=== PATIENT | female | born 1960 | race Two or more races ===

== ENCOUNTER 2018-04-01 17:49 | Emergency (ER) | payer SELFPAY ==
[2018-04-01 18:05] VITALS: BP 117/57
--- NOTE | 2018-04-01 18:11 | ER Document Report ---
HPI - HPI Pain Level: Denies Notes: Patient is a 51-year-old female with no significant past medical history who presents to the ED complaining of urinary burning, urgency, frequency 2-3 days. She is eating and drinking without difficulties. She is having normal bowel movements. Patient denies any drug allergies. She denies any smoking or IV drug use. Patient also presents to the ED trying to get a medical clearance for the plasma donation center. Patient states that when she was there they saw her hands and I looked arthritic and depending on the type of arthritis will determine if she can donate or not. Patient does not have a primary care provider. Denies any headache, fever, head injurURI, sore throat, chest pain, palpitations, syncope, cough, shortness of breath, wheeze, dyspnea, abdominal pain, nausea/vomiting/diarrhea, urinary retention, loss of control of bowel or bladder, numbness/tingling, muscle paralysis/weakness, or rash. - ROS Systems Reviewed and Negative: Yes All other systems reviewed and negative Past Medical History - Social History Smoking Status: Never Smoker Family History: Reviewed & Not Pertinent Vertical Provider Document - CONSTITUTIONAL Agree With Documented VS: Yes Notes: PHYSICAL EXAMINATION: GENERAL: Well-appearing, well-nourished and in no acute distress. LUNGS: Breath sounds clear to auscultation bilaterally and equal. No wheezes rales or rhonchi. HEART: Regular rate and rhythm without murmurs, rubs, gallops. ABDOMEN: Soft, nontender, nondistended abdomen. No guarding, no rebound. No masses appreciated. Normal bowel sounds present. No CVA tenderness bilaterally. Musculoskeletal: Hands b/l: FROM to passive/active. Strength 5+/5. + heberden' s nodes to the DIP joints of each digit. No ulnar deviation. N/V intact distal. Extremities: No cyanosis, clubbing, or edema b/l. Peripheral pulses 2+. Capillary refill less than 3 seconds. NEUROLOGICAL: Normal speech, normal gait. Normal sensory, motor exams PSYCH: Normal mood, normal affect. SKIN: Warm, Dry, normal turgor, no rashes or lesions noted. Course - Re-evaluation Re-evalutation: 04/01/18 18:39 Patient is an afebrile, well-hydrated 51-year-old female who presents to the ED with dysuria unspecified and arthritic changes to her hands which I suspect is osteoarthritis. Vitals are acceptable. PE is otherwise unremarkable for any neurovascular compress, obvious tendon/ligament rupture, obvious fracture/ dislocation. Patient has no tachycardia, tachypnea, or hypoxia. See urinalysis results. Urine culture is pending. Reviewed with patient that I will not be medically clearing her based on this 1 visit today and that she needs to see a specialist for further evaluation and management if she wants to donate plasma. Patient's abdomen is soft and nontender. Low suspicion for any sepsis, meningitis, pyelonephritis, acute abdomen, urosepsis. Conservative measures for symptoms. Establish with the PCM next week. Consider consult with orthopedic/rheumatology. Return to the ED with any worsening/concerning symptoms otherwise as reviewed discharge. Patient is in agreement. - Vital Signs Vital signs: Temp Pulse Resp BP Pulse Ox 98.7 F 71 17 117/57 L 98 04/01/18 18:04 04/01/18 18:04 04/01/18 18:04 04/01/18 18:04 04/01/18 18:04 Discharge - Discharge Clinical Impression: Arthritis of hand, Dysuria Condition: Stable Disposition: HOME, SELF-CARE Instructions: Family Physicians / Practices Additional Instructions: Push fluids (i.e. water, cranberry juice) Proper hygenic technique Keep the skin clean Tylenol/ibuprofen as needed Take medications as directed Establish with PCM in 1 week for a recheck Consider consult with orthopedic/rheumatology for ongoing/worsening symptoms and for further evaluation of your arthritis Return to the ED with any worsening symptoms and/or development of fever, headache, chest pain, palpitations, syncope, shortness of breath, trouble breathing, abdominal pain, n/v/d, blood in stool/urine, loss of control of bowel /bladder, urinary retention, or other worsening symptoms that are concerning to you. Referrals: [facility] [Provider Group] - Follow up as needed FRANSISCO SCOTT MD [ACTIVE STAFF] - Follow up as needed
[2018-04-01 18:30] LABS: APPEARANCE,URINE SLIGHTLY-CLOUDY; BILIRUBIN,URINE NEGATIVE (NEGATIVE); COLOR,URINE YELLOW; GLUCOSE, URINE NEGATIVE (NEGATIVE); KETONES,URINE NEGATIVE (NEGATIVE); LEUKOCYTE ESTERASE,URINE NEGATIVE (NEGATIVE); NITRITE,URINE NEGATIVE (NEGATIVE); PROTEIN,URINE NEGATIVE (NEGATIVE); URINE SPECIFIC GRAVITY 1.004; UROBILINOGEN,URINE NEGATIVE mg/dL (<2.0)
== END 2018-04-01 18:47 | disposition home or self-care (01) ==
LOC: EDBD → ER 17:49
DX: R30.0 Dysuria (principal); M19.042 Primary osteoarthritis, left hand; M19.041 Primary osteoarthritis, right hand
CPT/HCPCS: 81001; 87086; 99283

== ENCOUNTER 2019-12-17 11:43 | Emergency (ER) | payer SELFPAY ==
[2019-12-17] MEDS ORDERED: ONDANSETRON HCL INJ/PF 4 MG/2 ML SDV IV ONE (12:09)
--- NOTE | 2019-12-17 12:10 | ER Document Report ---
ED Medical Screen (RME) - General Chief Complaint: Abdominal Pain Stated Complaint: ABDOMINAL PAIN Time Seen by Provider: 12/17/19 12:06 Mode of Arrival: Ambulatory Information source: Patient Notes: Patient presents with abdominal tenderness that started 2 days ago. Patient does report nausea vomiting diarrhea. Patient denies any fever but does report chills. No urinary symptoms. Patient does report a previous history of stomach ulcers. I have greeted and performed a rapid initial assessment of this patient. A comprehensive ED assessment and evaluation of the patient, analysis of test results and completion of the medical decision making process will be conducted by additional ED providers. - Related Data Allergies/Adverse Reactions: No Known Allergies Allergy (Unverified 04/01/18 17:52) Past Medical History - Social History Chew tobacco use (# tins/day): No Frequency of alcohol use: None Drug Abuse: None Renal/ Medical History: Denies: Hx Peritoneal Dialysis Physical Exam - Vital signs Vitals: Temp Pulse Resp BP Pulse Ox 98.1 F 63 16 131/57 H 98 12/17/19 11:51 12/17/19 11:51 12/17/19 11:51 12/17/19 11:51 12/17/19 11:51 - General General appearance: Appears well, Alert - Abdominal Tenderness: Tender - epigastric Course - Vital Signs Vital signs: Temp Pulse Resp BP Pulse Ox 98.1 F 63 16 131/57 H 98 12/17/19 11:51 12/17/19 11:51 12/17/19 11:51 12/17/19 11:51 12/17/19 11:51
--- NOTE | 2019-12-17 12:42 | ER Document Report ---
ED GI/ - General Chief Complaint: Abdominal Pain Stated Complaint: ABDOMINAL PAIN Time Seen by Provider: 12/17/19 12:06 Mode of Arrival: Ambulatory Notes: CHIEF COMPLAINT: Chills, abdominal pain for 2 days, nausea HPI: 59-year-old female presenting to the emergency department complaining of abdominal pain over the last 2 days with nausea no vomiting. She has had chills no definite fever. She has had 2-3 episodes of diarrhea. Patient states her discomfort begins in the epigastric region radiating into the left lower quadrant region. Denies prior significant medical or surgical history other than . No history of diverticular disease per the patient. Denies dysuria ROS: See HPI - all other systems were reviewed and are otherwise negative Constitutional: no fever Eyes: no drainage, no blurred vision ENT: no runny nose, no sore throat Cardiovascular: no chest pain Resp: no SOB, no cough GI: no vomiting, + diarrhea, + abdominal pain, + nausea : no dysuria Integumentary: no rash Allergy: no hives Musculoskeletal: no extremity pain or swelling Neurological: no numbness/tingling, no weakness MEDICATIONS: I agree with the patient medications as charted by the RN. ALLERGIES: I agree with the allergies as charted by the RN. PAST MEDICAL HISTORY/PAST SURGICAL HISTORY: Reviewed and agree as charted by RN. SOCIAL HISTORY: Reviewed and agree as charted by RN. FAMILY HISTORY: No significant familial comorbid conditions directly related to patient complaint EXAM: Reviewed vital signs as charted by RN. CONSTITUTIONAL: Alert and oriented and responds appropriately to questions. Well-appearing; well-nourished, mild distress secondary to pain HEAD: Normocephalic; atraumatic EYES: Conjunctivae clear, sclerae non-icteric ENT: normal nose; no rhinorrhea; moist mucous membranes; pharynx without lesions noted, no uvula edema or deviation, no tonsillar hypertrophy, phonation normal NECK: Supple without meningismus; non-tender; no cervical lymphadenopathy, no masses CARD: RRR; no murmurs, no clicks, no rubs, no gallops; symmetric distal pulses RESP: Normal chest excursion without splinting or tachypnea; breath sounds clear and equal bilaterally; no wheezes, no rhonchi, no rales, pulse oximetry 98% on room air not hypoxic ABD/GI: Obese, normal bowel sounds; non-distended; soft, moderate tenderness in both the epigastric and left lower quadrant region on palpation. There is guarding in the left lower quadrant on exam, no rebound, no palpable organomegaly or masses. BACK: The back appears normal and is non-tender to palpation, there is no CVA tenderness EXT: Normal ROM in all joints; non-tender to palpation; no cyanosis, no effusions, no edema SKIN: Normal color for age and race; warm; dry; good turgor; no acute lesions noted NEURO: Moves all extremities equally; Motor and sensory function intact PSYCH: The patient's mood and manner are appropriate. Grooming and personal hygiene are appropriate. MDM: 59-year-old female presenting with 2-3 episodes of diarrhea, epigastric and left lower quadrant abdominal pain over the last 2 days with chills. She is moderately tender in the left lower quadrant on palpation. Screening labs ordered in triage, will add CT imaging to evaluate for diverticular disease, colitis, abscess. Discussed with attending Dr. Cotton and Dr. Ardon, Surgicalist. Prefers oral contrast in addition to IV contrast to better define the bowel in case there is abscess or surgical issue - Related Data Allergies/Adverse Reactions: acetaminophen [From NyQuil] Allergy (Verified 12/17/19 12:53) dextromethorphan [From NyQuil] Allergy (Verified 12/17/19 12:53) doxylamine [From NyQuil] Allergy (Verified 12/17/19 12:53) Penicillins Allergy (Verified 12/17/19 12:53) pseudoephedrine [From NyQuil] Allergy (Verified 12/17/19 12:53) Past Medical History - General Information source: Patient - Social History Smoking Status: Never Smoker Chew tobacco use (# tins/day): No Frequency of alcohol use: None Drug Abuse: None Family History: Reviewed & Not Pertinent Patient has suicidal ideation: No Patient has homicidal ideation: No Renal/ Medical History: Denies: Hx Peritoneal Dialysis Past Surgical History: Reports: Hx Section Physical Exam - Vital signs Vitals: Temp Pulse Resp BP Pulse Ox 98.1 F 63 16 131/57 H 98 12/17/19 11:51 12/17/19 11:51 12/17/19 11:51 12/17/19 11:51 12/17/19 11:51 Course - Re-evaluation Re-evalutation: 12/17/19 16:25 Patient states she feels much better. We will orally challenge. CT imaging showed diverticulosis without diverticulitis. Patient's lab work does not show acute emergent abnormalities. Will discharge home with prescription for Bentyl, Zofran, follow-up PCP, strict return instructions were discussed - Vital Signs Vital signs: Temp Pulse Resp BP Pulse Ox 98.1 F 63 16 131/57 H 98 12/17/19 11:51 12/17/19 11:51 12/17/19 11:51 12/17/19 11:51 12/17/19 11:51 - Laboratory Result Diagrams: 12/17/19 12:30 12/17/19 12:30 Laboratory results interpreted by me: 12/17/19 12/17/19 12:30 12:30 MCV 77 L MCH 25.4 L RDW 15.1 H Urine Protein 30 H Discharge - Discharge Clinical Impression: Abdominal pain, LLQ (left lower quadrant), Nausea vomiting and diarrhea, Diverticulosis Condition: Stable Disposition: HOME, SELF-CARE Additional Instructions: Take Zofran for any recurrent nausea or vomiting. Take Bentyl for abdominal pain or spasm. Follow-up closely with primary care provider for reevaluation if you develop fever greater than 101 or worsening pain or vomiting return for reevaluation Prescriptions: Dicyclomine HCl [Bentyl 20 mg Tablet] 20 mg PO QID PRN #20 tablet PRN Reason: Ondansetron [Zofran Odt 4 mg Tablet] 1 - 2 tab PO Q4H PRN #15 tab.rapdis PRN Reason: For Nausea/Vomiting Referrals: SANDRA DUPREE MD [COMMUNITY BASED STAFF] - Follow up as needed
[2019-12-17 12:44] LABS: ABSOLUTE EOSINOPHILS # (AUTO) 0.2 10^3/uL (0.0-0.6); ABSOLUTE LYMPHOCYTES (AUTO) 2.3 10^3/uL (0.5-4.7); ABSOLUTE MONOCYTES (AUTO) 0.4 10^3/uL (0.1-1.4); ABSOLUTE NEUT (AUTO) 3.5 10^3/uL (1.7-8.2); BASOPHILS % (AUTO) 0.8 % (0-2); EOSINOPHILS % (AUTO) 2.5 % (0-6); HEMATOCRIT 36.3 % (36.0-47.0); LYMPHOCYTES % (AUTO) 35.2 % (13-45); MEAN CORPUSCULAR HEMOGLOBIN 25.4 pg (27.0-33.4); MEAN CORPUSCULAR VOLUME 77 fl (80-97); MONOCYTES % (AUTO) 6.9 % (3-13); PLATELET COUNT 272 10^3/uL (150-450); RED BLOOD COUNT 4.72 10^6/uL (3.72-5.28); RED CELL DISTRIBUTION WIDTH 15.1 % (11.5-14.0); SEGMENTED NEUTROPHILS % (AUTO) 54.6 % (42-78); TOTAL CELLS COUNTED % (AUTO) 100 %; WHITE BLOOD COUNT 6.4 10^3/uL (4.0-10.5)
[2019-12-17 12:57] LABS: ALBUMIN 4.7 g/dL (3.5-5.0); ALKALINE PHOSPHATASE 75 U/L (38-126); ANION GAP 11 (5-19); ASPARTATE AMINO TRANSFERASE 27 U/L (14-36); BILIRUBIN,DIRECT 0.3 mg/dL (0.0-0.4); BILIRUBIN,TOTAL 0.3 mg/dL (0.2-1.3); BLOOD UREA NITROGEN 14 mg/dL (7-20); CALCIUM 9.5 mg/dL (8.4-10.2); CARBON DIOXIDE 28 mmol/L (22-30); CHLORIDE 104 mmol/L (98-107); GLUCOSE 97 mg/dL (75-110); POTASSIUM 4.2 mmol/L (3.6-5.0); TOTAL PROTEIN 8.2 g/dL (6.3-8.2)
[2019-12-17 13:00] LABS: AMORPHOUS SEDIMENT,URINE TRACE /HPF; APPEARANCE,URINE CLOUDY; BILIRUBIN,URINE NEGATIVE (NEGATIVE); COLOR,URINE YELLOW; GLUCOSE, URINE NEGATIVE (NEGATIVE); KETONES,URINE NEGATIVE (NEGATIVE); LEUKOCYTE ESTERASE,URINE NEGATIVE (NEGATIVE); NITRITE,URINE NEGATIVE (NEGATIVE); PROTEIN,URINE 30 mg/dL (NEGATIVE); URINE SPECIFIC GRAVITY 1.023; UROBILINOGEN,URINE NEGATIVE mg/dL (<2.0)
[2019-12-17] MEDS ORDERED: MORPHINE SULFATE 10 MG/ML INJ IV ONE (14:32)
--- NOTE | 2019-12-17 15:28 | RADIOLOGY REPORT (SQ) ---
EXAM DESCRIPTION: CT ABD/PELVIS WITH IV ORAL COMPLETED DATE/TIME: 12/17/2019 3:14 pm REASON FOR STUDY: LLQ pain COMPARISON: None. TECHNIQUE: CT scan of the abdomen and pelvis performed with intravenous and oral contrast using erin melissa scanning technique with dynamic intravenous contrast injection. Images reviewed with lung, soft t issue, and bone windows. Reconstructed coronal and sagittal MPR images reviewed. Delayed images for e valuation of the urinary system also acquired. All images stored on PACS. All CT scanners at this facility use dose modulation, iterative reconstruction, and/or weight based d osing when appropriate to reduce radiation dose to as low as reasonably achievable (ALARA). [facility]: Dose Right [facility]: CareDose [facility]: Dose Right [facility]: Teradose 4D [facility]: [employer] CONTRAST TYPE AND DOSE: contrast/concentration: Isovue 350.00 mg/ml; Total Contrast Delivered: 86.0 ml; Total Saline Delivered: 69.0 ml RENAL FUNCTION: GFR > 60. RADIATION DOSE: CT Rad equipment meets quality standard of care and radiation dose reduction techniq ues were employed. CTDIvol: 10.0 - 13.5 mGy. DLP: 1113 mGy-cm. . LIMITATIONS: None. FINDINGS: LOWER CHEST: No significant findings. No nodules or infiltrates. LIVER: Normal size. Fatty change. No masses. No dilated ducts. SPLEEN: Normal size. No focal lesions. PANCREAS: No masses. No significant calcifications. No adjacent inflammation or peripancreatic fluid collections. Pancreatic duct not dilated. GALLBLADDER: No identified stones by CT criteria. No inflammatory changes to suggest cholecystitis. ADRENAL GLANDS: No significant masses or asymmetry. RIGHT KIDNEY AND URETER: No solid masses. No significant calcifications. No hydronephrosis or hyd roureter. LEFT KIDNEY AND URETER: No solid masses. No significant calcifications. No hydronephrosis or hydr oureter. AORTA AND VESSELS: No aneurysm. No dissection. Renal arteries, SMA, celiac without stenosis. RETROPERITONEUM: No retroperitoneal adenopathy, hemorrhage or masses. BOWEL AND PERITONEAL CAVITY: Sigmoid diverticulosis. No obstruction. No visualized masses. No free f luid. No inflammatory changes or thickening of bowel wall. APPENDIX: Normal. PELVIS: 4.5 x 4.2 cm fat density lesion in the uterus consistent with benign lipoleiomyoma. Normal u rinary bladder. No pelvic adenopathy. ABDOMINAL WALL: Fat containing anterior abdominal wall hernia. BONES: No significant or acute findings. OTHER: No other significant finding. IMPRESSION: No acute findings. Diverticulosis without evidence of diverticulitis. Uterine lipoleiomyoma. TECHNICAL DOCUMENTATION: JOB ID: [id number] Quality ID # [id number]: Final reports with documentation of one or more dose reduction techniques (e.g., Au tomated exposure control, adjustment of the mA and/or kV according to patient size, use of iterative reconstruction technique) 2010 [employer]- All Rights Reserved Reading location - IP/workstation name: [email or web address]
[2019-12-17 17:04] VITALS: BP 132/65
== END 2019-12-17 17:04 | disposition home or self-care (01) ==
LOC: ER 11:43
DX: K57.90 Diverticulosis of intestine, part unspecified, without perforation or abscess without bleeding (principal); R10.32 Left lower quadrant pain; R10.13 Epigastric pain; R11.2 Nausea with vomiting, unspecified; R19.7 Diarrhea, unspecified; R68.83 Chills (without fever); Z88.6 Allergy status to analgesic agent; Z88.0 Allergy status to penicillin
CPT/HCPCS: 99284; 96374; 96375; 36415; 83690; 85025; 80053; 81001; 74177; J2270; J2405